=== PATIENT | male | born 1970 | race Caucasian/White ===

== ENCOUNTER 2016-11-15 12:23 | Day surgery (SDC) | payer OTHER ==
[~2016-11-15] VITALS: Ht 172.7 cm; Wt 72.6 kg
[~2016-11-15 12:23] MED LIST: LOSARTAN POTAS100 MG PO; LOSARTAN POTASS25 MG PO
== END 2016-11-15 16:15 | disposition home or self-care (01) ==
LOC: CATH 12:23
PROC: 0JH63PZ Insertion of Cardiac Rhythm Related Device into Chest Subcutaneous Tissue and Fascia, Percutaneous Approach (ICD-10-PCS; principal; 2016-11-15)
DX: I49.5 Sick sinus syndrome (principal); R55 Syncope and collapse; I10 Essential (primary) hypertension
CPT/HCPCS: J0690; J1200; J2250; J3010